=== PATIENT | male | born 1985 | race Caucasian/White ===

== ENCOUNTER 2016-12-13 15:02 | Emergency (ER) | payer BC ==
--- NOTE | 2016-12-13 15:35 | EDPHY ---
H & P Stated Complaint: Increased heart rate, left jaw pain. Time Seen by Provider: 12/13/16 15:08 - Personal History Current Tetanus Diphtheria and Acellular Pertussis (TDAP): Yes - Medical/Surgical History Hx Asthma: No Hx Chronic Respiratory Disease: No Hx Diabetes: No Hx Cardiac Disease: No Hx Renal Disease: No Hx Cirrhosis: No Hx Alcoholism: No Hx HIV/AIDS: No Hx Splenectomy or Spleen Trauma: No Other PMH: Denies - Social History Smoking Status: Current some day smoker Constitutional: Initial Vital Signs Temperature (C) 36.6 C 12/13/16 15:09 Heart Rate 101 H 12/13/16 15:09 Respiratory Rate 18 12/13/16 15:09 Blood Pressure 138/89 H 12/13/16 15:09 O2 Sat (%) 97 12/13/16 15:09 O2 Delivery Mode Room Air Allergies/Adverse Reactions: No Known Allergies Allergy (Unverified 12/13/16 15:11) Home Medications: Medication Instructions Recorded NK [No Known Home Meds] 12/13/16 Medical Decision Making - Diagnostics Imaging Results: Imaging Impressions Chest X-Ray 12/13/16 15:51 Impression: Possible mild airways disease. Chest/Thorax CTA 12/13/16 16:40 Impression: 1. No evidence of pulmonary embolus using CT protocol. 2. Small subpleural blebs left lower lobe posteriorly. 3. Cholelithiasis. Findings discussed with Reginaldo Frias MD at 18:17 hour, 12/13/2016. Imaging: Discussed imaging studies w/ call center director Radiologist, I viewed and interpreted images myself ED Course/Re-evaluation: CHIEF COMPLAINT: Rapid heart rate, near syncope HISTORY OF PRESENT ILLNESS: The patient is a 31 y/o male arriving with his family complaining of a rapid heart rate and near syncope onset today. He has been visiting from [place] for the last 2 weeks and feels like he's had an increased heart rate and heartburn for the last 5-6 days. He began feeling particularly poor this morning and says, "I probably stayed up too late last night" and may be hungover. He developed mild left jaw pain and swelling throughout the day. He didn't feel like he was improving and then his sensation of a rapid heart rate worsened. Due to a significant familial history of cardiac disease, he decided to drive to urgent care for evaluation. While driving he began to feel tingling in his arms and near-syncopal and states, "I either had a panic attack or things got away from me." He has not had a prior cardiac work up. REVIEW OF SYSTEMS: A 10 point review of systems was performed and is negative with the exception of the elements mentioned in the history of present illness. PHYSICAL EXAM: HR, BP, O2 Sat, RR. Temp noted General Appearance: Alert, well-hydrated, obese, appropriate, and anxious- appearing. Head: Atraumatic without scalp tenderness or obvious injury Eyes: Pupils equal, round, reactive to light and accommodation, EOMI, no trauma , no injection. Nose: Atraumatic, no rhinorrhea, clear. Throat: Pharyngeal erythema, no exudates, no lesions, normal tonsils, mucus membranes moist. Neck: Supple, non-tender, left mandibular lymphadenopathy. Respiratory: No retractions, no distress, no wheezes, and no accessory muscle use. Lungs are clear to auscultation bilaterally. Cardiovascular: Tachycardic regular rate and rhythm, no murmurs, rubs, or gallops. Good capillary refill all extremities. Gastrointestinal: Abdomen is soft, non-tender, non-distended, no masses, no rebound, no guarding, no peritoneal signs. Musculoskeletal: Normal active ROM of all extremities, atraumatic. Neurological: Alert, appropriate, and interactive. Nonfocal neuro exam. Skin: No rashes, good turgor, no nodules on palpation. PAST MEDICAL HISTORY: Acid reflux PAST SURGICAL HISTORY: Denies FAMILY HISTORY: Both parents have cardiac stents beginning around ages 58 and 60 as do his grandparents. 35 y/o cousin of [place]. SOCIAL HISTORY: Visiting from [place] for work. Family at bedside. Sister at bedside is OBGYN. Chews tobacco. DIAGNOSTICS/PROCEDURES/CRITICAL CARE TIME: The 12 lead EKG was interpreted by myself. Sinus mechanism rate 63. No ischemic changes. See hard copy and/or "tracemaster" electronic copy for interpretation. Chest x-ray: Negative Chest CTA: Cholelithiasis, no PE Echocardiogram: negative DIFFERENTIAL DIAGNOSIS: The differential diagnosis for the patient's palpitations and near-syncope included but was not limited to myocardial ischemia, pulmonary embolus, chest wall pain, pleural inflammation, pulmonary infectious causes, vasovagal syncope, arrhythmia, dehydration, cardiogenic causes, neurogenic causes, and blood loss. MEDICAL DECISION MAKING: This is a 31 y/o male with a significant family history for cardiac disease who presents with a several-day history of indigestion and rapid heart rate. His exam is unremarkable; he is not tachycardic currently. He will require a full cardiac work up to rule out acute cardiac and embolic causes of his symptoms. IV established. Labs drawn including CBC, CHEM, troponin, d-dimer. Patient placed on EKG and chest x-ray ordered. Patient's d-dimer is elevated at 1.13, he's had tachycardia, and has recently been traveling, which puts him at higher risk for pulmonary embolism. CTA chest indicated. 1641: Reassessed patient and discussed work up thus far. Recommended CTA Chest, which he agrees to. Reassessed patient and discussed work up. His CTA is negative for PE, though it does show incidental finding of cholelithiasis without evidence of cholecystitis. He will require provocative cardiac testing, which he would like to do upon his return home to [place] tomorrow. Discussed return precautions. He is comfortable with plan for follow up. - Data Points Laboratory Results: Laboratory Results 12/13/16 16:16 12/13/16 15:15 12/13/16 12/13/16 12/13/16 16:16 15:15 15:15 WBC 9.55 10^3/uL H 10^3/uL (3.80-9.50) RBC 4.77 10^6/uL 10^6/uL (4.40-6.38) Hgb 15.0 g/dL g/dL (13.7-17.5) Hct 42.6 % % (40.0-51.0) MCV 89.3 fL fL (81.5-99.8) MCH 31.4 pg pg (27.9-34.1) MCHC 35.2 g/dL g/dL (32.4-36.7) RDW 12.1 % % (11.5-15.2) Plt Count 280 10^3/uL 10^3/uL (150-400) MPV 9.1 fL fL (8.7-11.7) Neut % (Auto) 70.2 % % (39.3-74.2) Lymph % (Auto) 22.6 % % (15.0-45.0) Jones % (Auto) 6.1 % % (4.5-13.0) Eos % (Auto) 0.3 % L % (0.6-7.6) Baso % (Auto) 0.3 % % (0.3-1.7) Nucleat RBC Rel Count 0.0 % % (0.0-0.2) Absolute Neuts (auto) 6.70 10^3/uL H 10^3/uL (1.70-6.50) Absolute Lymphs (auto) 2.16 10^3/uL 10^3/uL (1.00-3.00) Absolute Monos (auto) 0.58 10^3/uL 10^3/uL (0.30-0.80) Absolute Eos (auto) 0.03 10^3/uL 10^3/uL (0.03-0.40) Absolute Basos (auto) 0.03 10^3/uL 10^3/uL (0.02-0.10) Absolute Nucleated RBC 0.00 10^3/uL 10^3/uL (0-0.01) Immature Gran % 0.5 % % (0.0-1.1) Immature Gran # 0.05 10^3/uL 10^3/uL (0.00-0.10) D-Dimer 1.13 ug/mLFEU H ug/mLFEU (0.00-0.50) Sodium 142 mEq/L mEq/L (134-144) Potassium 3.9 mEq/L mEq/L (3.5-5.2) Chloride 105 mEq/L mEq/L (97-110) Carbon Dioxide 19 mEq/l L mEq/l (22-31) Anion Gap 18 mEq/L H mEq/L (8-16) BUN 12 mg/dL mg/dL (7-23) Creatinine 1.0 mg/dL mg/dL (0.7-1.3) Estimated GFR > 60 Glucose 108 mg/dL H mg/dL (70-100) Calcium 10.2 mg/dL mg/dL (8.5-10.4) Magnesium 2.0 mg/dL mg/dL (1.6-2.3) Troponin I < 0.012 ng/mL ng/mL (0-0.034) NT-Pro-B Natriuret Pep < 11 pg/mL pg/mL (0-125) 12/13/16 15:15 WBC REJ RBC Not Reported Hgb Not Reported Hct Not Reported MCV Not Reported MCH Not Reported MCHC Not Reported RDW Not Reported Plt Count Not Reported MPV Not Reported Neut % (Auto) Not Reported Lymph % (Auto) Not Reported Jones % (Auto) Not Reported Eos % (Auto) Not Reported Baso % (Auto) Not Reported Nucleat RBC Rel Count Not Reported Absolute Neuts (auto) Not Reported Absolute Lymphs (auto) Not Reported Absolute Monos (auto) Not Reported Absolute Eos (auto) Not Reported Absolute Basos (auto) Not Reported Absolute Nucleated RBC Not Reported Immature Gran % Not Reported Immature Gran # Not Reported D-Dimer Sodium Potassium Chloride Carbon Dioxide Anion Gap BUN Creatinine Estimated GFR Glucose Calcium Magnesium Troponin I NT-Pro-B Natriuret Pep Medications Given: Discontinued Medications Sodium Chloride (Ns) 1,000 mls @ 0 mls/hr IV ONCE ONE; Wide Open PRN Reason: Protocol Stop: 12/13/16 15:52 Last Admin: 12/13/16 16:12 Dose: 1,000 mls Departure - Departure Disposition: Home, Routine, Self-Care Clinical Impression: Cholelithiases Qualifiers: Cholelithiasis location: gallbladder Cholecystitis presence: without cholecystitis Biliary obstruction: without biliary obstruction Qualified Code(s) : K80.20 - Calculus of gallbladder without cholecystitis without obstruction Chest pain Qualifiers: Chest pain type: other chest pain Qualified Code(s): R07.89 - Other chest pain Condition: Good Instructions: Chest Pain (ED) Additional Instructions: Follow up with a engineer upon your return home without fail. You will need a provocative cardiac work up given your family history. Return to the ED for any worsening of condition. Referrals: Patient,NotPresent [Unknown] - As per Instructions Edgard Javier MD [Medical Doctor] - As per Instructions Report Scribed for: Reginaldo Frias Report Scribed by: Ronda Millan Date of Report: 12/13/16 Time of Report: 15:52
[2016-12-13] MEDS ORDERED: NS 1,000 ML IV ONE (15:51)
--- NOTE | 2016-12-13 16:00 | CPEKG ---
Heart Rate: 95 RR Interval: 632 P-R Interval: 164 QRSD Interval: 102 QT Interval: 356 QTC Interval: 448 P [place]: 61 QRS [place]: 33 T Wave [place]: 2 EKG Severity - NORMAL ECG - EKG Impression: SINUS RHYTHM Electronically Signed By: Reginaldo Frias 13-Dec-2016 23:29:16
[2016-12-13 16:03] LABS: ANION GAP 18 mEq/L (8-16); CALCIUM 10.2 mg/dL (8.5-10.4); CARBON DIOXIDE 19 mEq/l (22-31); CHLORIDE 105 mEq/L (97-110); GLOMERULAR FILTRATION RATE > 60; GLUCOSE 108 mg/dL (70-100); POTASSIUM 3.9 mEq/L (3.5-5.2); SODIUM 142 mEq/L (134-144)
[2016-12-13 16:15] LABS: TROPONIN I < 0.012 ng/mL (0-0.034)
[2016-12-13 16:19] LABS: % IMMATURE GRANULYOCYTES 0.5 % (0.0-1.1); ABSOLUTE IMMATURE GRANULOCYTES 0.05 10^3/uL (0.00-0.10); ADD DIFF? NO; ADD MORPH? NO; ADD SCAN? NO; ATYPICAL LYMPHOCYTE FLAG 0 (0-99); FRAGMENT RBC FLAG 0 (0-99); HEMATOCRIT 42.6 % (40.0-51.0); LEFT SHIFT FLG 0 (0-99); LIPEMIA HEMOLYSIS FLAG 90 (0-99); MEAN CELL HEMOGLOBIN 31.4 pg (27.9-34.1); MEAN CELL HEMOGLOBIN CONCENTR. 35.2 g/dL (32.4-36.7); MEAN CELL VOLUME 89.3 fL (81.5-99.8); MEAN PLATELET VOLUME 9.1 fL (8.7-11.7); PLATELET CLUMPS FLAG 0 (0-99); PLATELET COUNT 280 10^3/uL (150-400); RED BLOOD CELL COUNT 4.77 10^6/uL (4.40-6.38); RED CELL DISTRIBUTION WIDTH 12.1 % (11.5-15.2)
--- NOTE | 2016-12-13 16:55 | ECHO ---
[id number] + + [address] : : [place] [address] : : [phone] + Adult Echocardiographic Report + ---------+ :Name: NILS CHRIS LStudy Date: 12/13/2016 04:28 PM : : Hospital Admission Number: [id number] Locat ion: ER23: :: 1985 Gender: Male Height: 69 in : :Age: 31 yrs Race: UN Weight: 220 l b : :Reason For Study: Eval LV Fx : : BSA: 2.2 mete rs2 : :History: Tachycardia, Family Hx of CAD : + ---------+ MMode/2D Measurements \T\ Calculations IVSd: 0.92 cm LVIDd: 4.6 cm FS: 33.4 % Ao root diam: 3.1 cm LVPWd: 1.0 cm LVIDs: 3.1 cm EDV(Teich): 97.8 ml ACS: 1.7 cm ESV(Teich): 37.0 ml EF(Teich): 62.2 % Normal Measurement Values: + + :LVIDd (3.5-5.7cm) IVSd (0.6-1.1cm) LVPWd (0.6-1.1cm) Aortic Root (2.0-3.7cm)Left Atrium (1.5-4.0cm): :LV Vol(d) (76-115ml) LV Vol(s) (29-48ml) Ejec Fraction (50-65%)PV Nik (0.6- 1.2m/s) TV Nik (0.4-1.0m/s) : :MV E Nik (0.8-1.0m/s)MV A Nik (0.3-1.0m/s)LVOT Nik (0.7-1.2m/s) Asc Ao Nik ( 0.9-1.8m/s) : + + Doppler Measurements \T\ Calculations MV E max nik: Ao V2 max: LV V1 max: PA V2 max: 88.8 cm/sec 166.0 cm/sec 110.0 cm/sec 136.0 cm/sec MV A max nik: Ao max PG: LV V1 max PG: PA max P.9 cm/sec 11.0 mmHg 4.8 mmHg 7.4 mmHg MV E/A: 1.0 TR max nik: 178.0 cm/sec TR max P.7 mmHg RAP systole: 5.0 mmHg RVSP(TR): 17.7 mmHg Left Ventricle The left ventricle is normal in size and function. There is normal left ventricular wall thickness. The left ventricular ejection fraction is normal. Tachycardia. Ejection Fraction = 65%. The left ventricular wall motion is normal. Right Ventricle The right ventricle is normal in size and function. Atria The left atrial size is normal. Right atrial size is normal. Mitral Valve The mitral valve is normal in structure and function. There is no evidence of mitral valve prolapse. There is no mitral regurgitation noted. Tricuspid Valve The tricuspid valve is normal in structure and function. There is trace tricuspid regurgitation. Aortic Valve The aortic valve is normal in structure and function. The aortic valve is trileaflet. The aortic valve opens well. There is no aortic stenosis. There is no aortic insufficiency. Pulmonic Valve The pulmonic valve is normal in structure and function. There is no pulmonic valvular regurgitation. Great Vessels The aortic root is normal size. Pericardium/Pleural There is no pericardial effusion. Conclusion A complete two-dimensional transthoracic echocardiogram was performed (2D, M-mode, Doppler and color flow Doppler). The left ventricular ejection fraction is normal. Ejection Fraction = 65%. The left ventricular wall motion is normal. The right ventricle is normal in size and function. The left atrial size is normal. The mitral valve is normal in structure and function. The tricuspid valve is normal in structure and function. There is trace tricuspid regurgitation. The aortic valve is normal in structure and function. The aortic valve is trileaflet. There is no pericardial effusion. Final Reading Physician: Marky Barraza signed on 12/13/2016 04:53 PM Ordering Physician: Reginaldo Frias Performed By: Vernon Lyons, CS
[2016-12-13] MEDS ORDERED: IOPAMIDOL (ISOVUE 370) 100 ML BTL IV ONE (17:29)
[2016-12-13 20:20] VITALS: BP 165/88; PULSE 86; RESP 18; TEMP 98.8; O2SAT 97
== END 2016-12-13 20:19 | disposition home or self-care (01) ==
LOC: EDBD 15:02
DX: R07.89 Other chest pain (principal); K80.20 Calculus of gallbladder without cholecystitis without obstruction; F17.200 Nicotine dependence, unspecified, uncomplicated; E86.9 Volume depletion, unspecified
CPT/HCPCS: Q9967